=== PATIENT | female | born 1995 | race Two or more races ===

== ENCOUNTER 2021-05-16 11:28 | Observation (INO) | payer SELFPAY ==
[2021-05-16 12:26] LABS: BILIRUBIN,URINE NEGATIVE (NEG); CLARITY,URINE CLEAR; COLOR,URINE YELLOW; NITRITE,URINE NEGATIVE (NEG); PH,URINE 6.5 (<5.0-8.0); PROTEIN,URINE NEGATIVE (NEG-TRACE)
[2021-05-16 12:34] LABS: BACTERIA,URINE MODERATE /HPF (0-FEW)
[2021-05-16] MEDS: IV RINGERS,LACTATED 1000ML 1,000 ML IV SCH ×2 (13:35→18:39)
[2021-05-16] MEDS: BETAMET ACET&NA PHOS 30 MG/5 ML VIAL. IM SCH (14:53)
[2021-05-16] MEDS ORDERED: AZITHROMYCIN 250 MG TABLET. PO ONE (16:30)
--- NOTE | 2021-05-16 16:41 | PDOC1 ---
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 The pts has been relatively uncomplicated. She did acquire Chl during the . A recent LAISHA this month again returned pos. After sometime of observation the FHR baseline went into the 160s. When asked she does note possibly having chills. PMH: Denies PSH: Right knee Meds: PNV All: NKDA OBHx: 1 x TSVD SH: no tob, no EtOH FH: noncontributory Medications: Meds: Current Medications Medications (Trade) Dose Ordered Sig/Emilia Route PRN Reason Start Time Stop Time Status Last Admin Dose Admin Ringer's Solution 1,000 ml @ 125 mls/hr Q8H IV 05/16/21 11:45 05/16/21 13:35 Betamethasone Sodium Phosphate (Celestone Soluspan) 12 mg Q24H IM 05/16/21 15:00 05/17/21 15:01 05/16/21 14:53 Allergies: Coded Allergies: No Known Drug Allergies (Unverified , 05/16/21) Physical Exam: PE: GENERAL: No apparent distress. Alert and oriented. HEENT: Head normocephalic, atraumatic. NECK: Supple LUNGS: Clear to auscultation. HEART: RRR, S1, S2 present, pulses intact ABDOMEN: Soft, positive bowel sounds. EXTREMITIES: No cyanosis or edema. NEUROLOGIC: Normal speech, normal tone PSYCHIATRIC: Normal affect, normal mood. SKIN: No ulceration. FHT: 170s +acels/no decels/MLTV [place]: 1-2 min SVE: 06/15/-3 Labs: Laboratory Tests Test 05/16/21 11:45 Urine Collection Type Unknown Urine Color Yellow Urine Clarity Clear Urine pH 6.5 (<5.0-8.0) Urine Specific [place] 1.020 (1.000-1.030) Urine Protein Negative mg/dL (NEG-TRACE) Urine Glucose (UA) Negative mg/dL (NEG) Urine Ketones (Stick) >=80 mg/dL (NEG) Urine Blood Negative (NEG) Urine Nitrite Negative (NEG) Urine Bilirubin Negative (NEG) Urine Urobilinogen Dipstick 1.0 mg/dL (0.2 mg/dL) Urine Leukocyte Esterase Negative (NEG) Urine RBC 1-2 /HPF (0-2) Urine WBC 1-4 /HPF (0-4) Urine Squamous Epithelial Cells Many /LPF Urine Transitional Epithelial Cells Few /LPF Urine Renal Epithelial Cells Few /LPF Urine Bacteria Moderate /HPF (0-FEW) Urine Mucus Marked /LPF Assessment & Plan: A/P 25y 35.5 @ L=24 1.) PTC vs PTL since beyond 34wks will not tocolysize. IVF started 2.) Chl pos LAISHA pos, last txed 05/13/21 will give another dose during this hospitalization 3.) tachy AF, Tcurrent 99.7, CBC ordered, Covid screen performed 4.) Fetus cat I FHT, as above noted tachy, BMTZ #1 @ 1501 5.) ASC-H pap 6.) TDAP given 03/17/21 7.) Flu given 03/17/21 8.) Covid #1 given 01/22/21 9.) Anemia Hgb 11.2 10.) GBS unk will start PCN if progresses or ROM MARCELLA OG MD May 16, 2021 16:41
--- NOTE | 2021-05-16 16:47 | PDOC4 ---
VAGINAL DELIVERY DATE DATE: 05/16/21 TIME: 16:47 TIME Patient delivered a viable female over intact perineum at 1338. Wt 6 lb 11.2 oz. Apgars 8/9. Placenta delivered spontaneously, intact with 3VC. 2nd degree laceration repaired with 30 vicryl in nml fashion. Good hemostasis noted. 20 U of Pit given with IVF. EBL 200 cc. WEIGHT Weight [ ] MARCELLA OG MD May 16, 2021 16:47
[2021-05-16 18:27] LABS: BASO % 0 % (0-3); EOS % 0 % (0-3); HEMATOCRIT 27.9 % (36.0-47.0); LYMPH # 0.5 x10^3/uL (1.0-4.8); LYMPH % 5 % (24-48); MEAN CORPUSCULAR HEMOGLOBIN 24 pg (25-35); MEAN CORPUSCULAR HGB CONC 32 g/dL (31-37); MEAN CORPUSCULAR VOLUME 76 fL (79-100); MONO # 0.1 x10^3/uL (0.0-1.1); MONO % 2 % (0-9); NEUT # 9.4 x10^3/uL (1.8-7.7); NEUT % 94 % (31-73); PLATELET COUNT 174 x10^3/uL (140-400); RED BLOOD COUNT 3.69 x10^6/uL (3.50-5.40); RED CELL DISTRIBUTION WIDTH 15.3 % (11.5-14.5)
[2021-05-16 18:51] LABS: % BANDS 1 % (0-9); % LYMPHS 1 % (24-48); % MONOS 1 % (0-10); % SEGS 97 % (35-66); HYPOCHROMIA SLIGHT; PLT ESTIMATE ADEQUATE (ADEQUATE)
[2021-05-16] MEDS ORDERED: AMPICILLIN SODIUM 2 GM in IV NORMAL SALINE 100ML 100 ML IV ONE (19:15)
[2021-05-16] MEDS: AMPICILLIN SODIUM 1 GM in IV NORMAL SALINE 50ML 50 ML IV SCH (23:23)
[2021-05-17] MEDS: IV RINGERS,LACTATED 1000ML 1,000 ML IV SCH (03:31)
[2021-05-17] MEDS: AMPICILLIN SODIUM 1 GM in IV NORMAL SALINE 50ML 50 ML IV SCH ×2 (03:31→07:10)
[2021-05-17 03:34] LABS: BASO % 0 % (0-3); EOS % 0 % (0-3); HEMATOCRIT 24.1 % (36.0-47.0); HEMOGLOBIN 7.8 g/dL (12.0-15.5); LYMPH # 0.6 x10^3/uL (1.0-4.8); LYMPH % 6 % (24-48); MEAN CORPUSCULAR HEMOGLOBIN 25 pg (25-35); MEAN CORPUSCULAR HGB CONC 33 g/dL (31-37); MEAN CORPUSCULAR VOLUME 75 fL (79-100); MONO # 0.3 x10^3/uL (0.0-1.1); MONO % 3 % (0-9); NEUT # 9.5 x10^3/uL (1.8-7.7); NEUT % 91 % (31-73); PLATELET COUNT 166 x10^3/uL (140-400); RED CELL DISTRIBUTION WIDTH 15.2 % (11.5-14.5); WHITE BLOOD COUNT 10.5 x10^3/uL (4.0-11.0)
--- NOTE | 2021-05-17 10:51 | PDOC ---
ANIMAL TRAINER PROGRESS NOTE Date of Service: DATE: 05/17/21 TIME: 10:50 Subjective: The pt feels her ctxs are no longer intense. Discussed plan with pt. Objective: Labs: Laboratory Tests Test 05/16/21 11:45 05/16/21 17:45 05/16/21 18:05 05/17/21 03:25 Urine Collection Type Unknown Urine Color Yellow Urine Clarity Clear Urine pH 6.5 (<5.0-8.0) Urine Specific [place] 1.020 (1.000-1.030) Urine Protein Negative mg/dL (NEG-TRACE) Urine Glucose (UA) Negative mg/dL (NEG) Urine Ketones (Stick) >=80 mg/dL (NEG) Urine Blood Negative (NEG) Urine Nitrite Negative (NEG) Urine Bilirubin Negative (NEG) Urine Urobilinogen Dipstick 1.0 mg/dL (0.2 mg/dL) Urine Leukocyte Esterase Negative (NEG) Urine RBC 1-2 /HPF (0-2) Urine WBC 1-4 /HPF (0-4) Urine Squamous Epithelial Cells Many /LPF Urine Transitional Epithelial Cells Few /LPF Urine Renal Epithelial Cells Few /LPF Urine Bacteria Moderate /HPF (0-FEW) Urine Mucus Marked /LPF SARS-CoV-2 RNA (RONN) Negative (Negative) SARS-CoV-2 Antigen (Rapid) Negative (NEGATIVE) White Blood Count 10.0 x10^3/uL (4.0-11.0) 10.5 x10^3/uL (4.0-11.0) Red Blood Count 3.69 x10^6/uL (3.50-5.40) 3.20 x10^6/uL (3.50-5.40) L Hemoglobin 9.0 g/dL (12.0-15.5) L 7.8 g/dL (12.0-15.5) L Hematocrit 27.9 % (36.0-47.0) L 24.1 % (36.0-47.0) L Mean Corpuscular Volume 76 fL (79-100) L 75 fL (79-100) L Mean Corpuscular Hemoglobin 24 pg (25-35) L 25 pg (25-35) Mean Corpuscular Hemoglobin Concent 32 g/dL (31-37) 33 g/dL (31-37) Red Cell Distribution Width 15.3 % (11.5-14.5) H 15.2 % (11.5-14.5) H Platelet Count 174 x10^3/uL (140-400) 166 x10^3/uL (140-400) Neutrophils (%) (Auto) 94 % (31-73) H 91 % (31-73) H Lymphocytes (%) (Auto) 5 % (24-48) L 6 % (24-48) L Monocytes (%) (Auto) 2 % (0-9) 3 % (0-9) Eosinophils (%) (Auto) 0 % (0-3) 0 % (0-3) Basophils (%) (Auto) 0 % (0-3) 0 % (0-3) Neutrophils # (Auto) 9.4 x10^3/uL (1.8-7.7) H 9.5 x10^3/uL (1.8-7.7) H Lymphocytes # (Auto) 0.5 x10^3/uL (1.0-4.8) L 0.6 x10^3/uL (1.0-4.8) L Monocytes # (Auto) 0.1 x10^3/uL (0.0-1.1) 0.3 x10^3/uL (0.0-1.1) Eosinophils # (Auto) 0.0 x10^3/uL (0.0-0.7) 0.0 x10^3/uL (0.0-0.7) Basophils # (Auto) 0.0 x10^3/uL (0.0-0.2) 0.0 x10^3/uL (0.0-0.2) Segmented Neutrophils % 97 % (35-66) H Band Neutrophils % 1 % (0-9) Lymphocytes % 1 % (24-48) L Monocytes % 1 % (0-10) Platelet Estimate Adequate (ADEQUATE) Hypochromasia Slight Laboratory Tests 05/16/21 18:05 05/17/21 03:25 Laboratory Tests 05/17/21 03:25 Physical Exam: GENERAL: No apparent distress. Alert and oriented. HEENT: Head normocephalic, atraumatic. NECK: Supple LUNGS: Clear to auscultation. HEART: RRR, S1, S2 present, pulses intact ABDOMEN: Soft, positive bowel sounds. EXTREMITIES: No cyanosis or edema. NEUROLOGIC: Normal speech, normal tone PSYCHIATRIC: Normal affect, normal mood. SKIN: No ulceration. FHT: 130s +acels/no decels/mLTV [place]: 8-10 min Assessment & Plan: A/P 25y 35.6 @ L=24 1.) PTC vs PTL since beyond 34wks will not tocolysize. Ctxs have spaced out with IVF alone 2.) Chl pos LAISHA pos, last txed 05/13/21 will give another dose during this hospitalization 3.) tachy resolved, has remained AF over the hospital course, WBC wnl (but left shift), Covid neg 4.) Anemia Hgb 7.8, will start Fe BID 5.) Fetus cat I FHT, BMTZ #1 @ 1501 6.) ASC-H pap 7.) TDAP given 03/17/21 8.) Flu given 03/17/21 9.) Covid #1 given 01/22/21 10.) GBS unk was placed on Amp when ctxs were more frequent, will d/c at this time 11.) If ctxs remain light, will d/c after 2nd dose of BMTZ MARCELLA OG MD May 17, 2021 10:51
[2021-05-17] MEDS ORDERED: FERROUS SULFATE ORAL 300 MG/5 ML SOLUTION. PO SCH (11:00)
[2021-05-17] MEDS ORDERED: FERROUS SULFATE 325 MG TABLET. PO SCH ×2 (15:00→15:30)
[2021-05-17] MEDS: BETAMET ACET&NA PHOS 30 MG/5 ML VIAL. IM SCH (15:13)
[2021-05-17] MEDS ORDERED: PRENATAL MULTIVITAMIN TABLET. PO SCH (15:30)
== END 2021-05-17 15:59 | disposition home or self-care (01) ==
LOC: 3 SO LND 11:28 → INTOOBSV 16:47 → OBSVTOIN 16:47
PROVIDERS: ADMIT Obstetrics & Gynecology; ATTEND Obstetrics & Gynecology
DX: O99.891 Other specified diseases and conditions complicating pregnancy (principal); Z20.822 Contact with and (suspected) exposure to COVID-19; M54.9 Dorsalgia, unspecified; O99.013 Anemia complicating pregnancy, third trimester; D64.9 Anemia, unspecified; Z3A.35 35 weeks gestation of pregnancy
CPT/HCPCS: 36415; 81001; 85007; 85025; 86850; 86900; 86901; 87086; 87147; 87426; 96361; 96365; 96366; 96372; 96376; G0378; G0379; J0290; J0702; J7120; U0003; U0005

== ENCOUNTER 2021-05-28 22:59 | Observation (INO) | payer SELFPAY ==
[2021-05-28] MEDS ORDERED: IV RINGERS,LACTATED 1000ML 1,000 ML IV SCH (23:15)
[2021-05-28] MEDS ORDERED: ONDANSETRON PF 4 MG/2 ML VIAL. IVP PRN (23:15)
[2021-05-28 23:31] LABS: BILIRUBIN,URINE NEGATIVE (NEG); CLARITY,URINE CLEAR; COLOR,URINE YELLOW; NITRITE,URINE NEGATIVE (NEG); PH,URINE 7.5 (<5.0-8.0); PROTEIN,URINE NEGATIVE (NEG-TRACE)
[2021-05-28 23:45] LABS: BACTERIA,URINE 0 /HPF (0-FEW); RBC,URINE 0 /HPF (0-2); WBC,URINE 0 /HPF (0-4)
== END 2021-05-29 01:05 | disposition home or self-care (01) ==
LOC: 3 SO LND 22:59
PROVIDERS: ADMIT Obstetrics & Gynecology; ATTEND Obstetrics & Gynecology
DX: O62.9 Abnormality of forces of labor, unspecified (principal); Z3A.37 37 weeks gestation of pregnancy
CPT/HCPCS: 59025; 81001; G0378; G0379